=== PATIENT | male | born 1955 | race Caucasian/White ===

== ENCOUNTER 2018-10-24 19:49 | Emergency (ER) | payer BC ==
--- NOTE | 2018-10-24 20:30 | RAD ---
EXAM: 4 views of the left knee HISTORY: Knee pain after knee replacement 3 weeks ago COMPARISON: None FINDINGS: No knee effusion is seen. There is no evidence of acute fracture or dislocation. The patien t is status post knee arthroplasty without perihardware lucency or fracture. Moderate diffuse soft tissue swelling is present. IMPRESSION: No evidence of acute osseous abnormality.
== END 2018-10-24 20:35 | disposition home or self-care (01) ==
LOC: NAV ERS 19:49
DX: G89.18 Other acute postprocedural pain (principal); M25.562 Pain in left knee; I10 Essential (primary) hypertension; E78.00 Pure hypercholesterolemia, unspecified; G47.30 Sleep apnea, unspecified; Z79.82 Long term (current) use of aspirin; Z79.899 Other long term (current) drug therapy; Z79.01 Long term (current) use of anticoagulants

== ENCOUNTER 2018-11-17 22:19 | Emergency (ER) | payer BC ==
[2018-11-17] MEDS ORDERED: Adacel (T-DAP) 0.5 ML SYRINGE ONE (22:30)
--- NOTE | 2018-11-17 23:19 | RAD ---
XR Ankle Lt 3 View STANDARD History: Snakebite Comparison: None. Findings: Mild posterior soft tissue swelling. Tendon suture anchors of the talar neck. Old medial an d lateral collateral ligament injury at the ankle. Moderate dorsal and plantar calcaneal spurs. Moderate midfoot degenerative change. Medial hallux sesamoid is bipartite. Impression: Soft tissue swelling without radiopaque foreign object.
== END 2018-11-18 00:35 | disposition home or self-care (01) ==
LOC: NAV ERS 22:19
DX: S91.352A Open bite, left foot, initial encounter (principal); E78.00 Pure hypercholesterolemia, unspecified; I10 Essential (primary) hypertension; Z79.82 Long term (current) use of aspirin; Z79.899 Other long term (current) drug therapy; Z23 Encounter for immunization; W59.11XA Bitten by nonvenomous snake, initial encounter
CPT/HCPCS: 90471; 90715

== ENCOUNTER 2024-11-10 18:38 | Emergency (ER) | payer MEDICARE | END 2024-11-10 19:55 | disposition home or self-care (01) | LOC: NAV ERS 18:38 | DX: S50.01XA Contusion of right elbow, initial encounter (principal); I10 Essential (primary) hypertension; E78.00 Pure hypercholesterolemia, unspecified; Z79.82 Long term (current) use of aspirin; Z79.899 Other long term (current) drug therapy; V29.91XA Electric (assisted) bicycle rider (driver) (passenger) injured in unspecified traffic accident, initial encounter; Y93.55 Activity, bike riding | CPT/HCPCS: 99284 ==